=== PATIENT | female | born 1990 | race African-American/Black ===

== ENCOUNTER 2020-06-30 09:18 | Emergency (ER) | payer OTHER ==
[~2020-06-30] VITALS: Ht 170.2 cm; Wt 60.8 kg
[2020-06-30 09:26] VITALS: BP 112/84
[2020-06-30] MEDS ORDERED: CEPH500C2 PO (09:39)
[2020-06-30 09:54] LABS: BILIRUBIN,URINE Negative (NEGATIVE); COLOR,URINE YELLOW (YELLOW); LEUKOCYTE ESTERASE ,URINE Negative (NEGATIVE); NITRITE, URINE Negative (NEGATIVE); PH,URINE 8.5 (5.0-8.0); PROTEIN,URINE Negative (NEGATIVE); UGLUCOSE Negative (NEGATIVE); UROBILINOGEN,URINE 0.2 EU/dL (0.2)
[2020-06-30 09:59] LABS: BACTERIA,URINE Few /HPF (None Seen); SQUAMOUS EPITHELIAL CELL,UR Few /HPF (None Seen); WBC,URINE 0-2 /HPF (0-3)
--- NOTE | 2020-06-30 10:11 | NUR ---
Patient given a prescription and explained instructions. Patient discharged to home in stable condition. Written and verbal after care instructions given. Patient verbalizes understanding of instruction.
== END 2020-06-30 10:12 | disposition home or self-care (01) ==
LOC: ER 09:26
DX: N39.0 Urinary tract infection, site not specified (principal); F17.200 Nicotine dependence, unspecified, uncomplicated
CPT/HCPCS: 81001; 84703-TC; 87086-TC

== ENCOUNTER 2022-02-10 12:42 | Emergency (ER) | payer OTHER ==
[~2022-02-10] VITALS: Ht 170.2 cm; Wt 61.2 kg
[~2022-02-10 12:42] MED LIST: CEPH500C2 PO
[2022-02-10 12:57] VITALS: BP 110/84
--- NOTE | 2022-02-10 13:20 | NUR ---
DR KRAMER W/ PT.
--- NOTE | 2022-02-10 13:30 | NUR ---
Patient discharged to home in stable condition. Written and verbal after care instructions given. Patient verbalizes understanding of instruction.
== END 2022-02-10 13:31 | disposition home or self-care (01) ==
LOC: ER 12:46
DX: G89.29 Other chronic pain (principal); F17.200 Nicotine dependence, unspecified, uncomplicated; Z79.899 Other long term (current) drug therapy